=== PATIENT | male | born 1975 | race Caucasian/White ===

== ENCOUNTER 2024-07-28 15:34 | Emergency (ER) | payer MEDICAID, SELFPAY ==
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
[2024-07-28 15:39] VITALS: BP 157/90; PULSE 90; O2SAT 100
[2024-07-28 15:42] VITALS: BP 149/92; PULSE 92; RESP 24; TEMP 36.6; O2SAT 100; BMI 24.1
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
[2024-07-28 18:32] VITALS: BP 134/79; PULSE 65; RESP 16; O2SAT 97
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
[2024-07-28] MEDS: dexAMETHasone sod phosphate 10 MG/ML VIAL IVPUSH (21:29)
--- NOTE | 2024-07-28 21:43 | PC.NURSE ---
abrasions to R hand, bridge of nose and chin cleaned. R hand dressed w/ nonstick
[2024-07-28] MEDS: Bacitracin Oint 0.9 GM PACKET 1 APPL TOPICAL (21:52)
[2024-07-28 22:03] VITALS: BP 124/72; PULSE 57; RESP 16; TEMP 36.9; O2SAT 100
--- NOTE | 2024-07-28 23:14 | PC.NURSE ---
this rn assumed care of pt, pt resting in stretcher, aspin collar in place, no acute distress noted.
--- NOTE | 2024-07-28 23:34 | PC.NURSE ---
attempted to call report to [facility] ed for nurse to nurse, no answer at this time, plan to call back.
--- NOTE | 2024-07-28 23:45 | PC.NURSE ---
report given Dennis RN for nurse to nurse at [facility].
[2024-07-29 00:29] VITALS: BP 114/72; PULSE 61; RESP 17; TEMP 37.2; O2SAT 97
--- NOTE | 2024-07-29 00:30 | PC.NURSE ---
ems at bedside for transport, report given.
[2024-07-29 00:31] VITALS: BP 114/72; PULSE 61; RESP 17; TEMP 37.2; O2SAT 97
== END 2024-07-29 00:33 | disposition short-term general hospital (02) ==
PROVIDERS: Emergency Provider Internal Medicine; PCP Family Medicine
DX: S00.83XA Contusion of other part of head, initial encounter (principal); S12.500A Unspecified displaced fracture of sixth cervical vertebra, initial encounter for closed fracture; R51.9 Headache, unspecified; M54.2 Cervicalgia; V19.9XXA Pedal cyclist (driver) (passenger) injured in unspecified traffic accident, initial encounter; Y93.89 Activity, other specified; Y92.488 Other paved roadways as the place of occurrence of the external cause; Y99.8 Other external cause status
CPT/HCPCS: 70450; 70486; 72125; 99285; J1100